=== PATIENT | female | born 1985 | race Caucasian/White ===

== ENCOUNTER → 2016-05-16 | Outpatient (CLI) | payer OTHER ==
[~2016-05-16] MED LIST: 'XANAX1 MG PO; ALBUTEROL0.09 MG/A2 IH; AMBIEN10 M1 PO; AMBIEN10 MG PO; BACTRIM DS 8001 TA1 PO; BRETHINE2.5 M1 PO; CATAFLAM50 MG PO; CIPROFLOXACIN500 MG PO; CLARITIN10 MG PO; CLINDAMYCIN HC300 MG PO; CORDROL20 MG PO; DARVOCET N 1001 TAB PO; DAYPRO600 M1 PO; DELSYM30 MG/5 ML PO; DELTASONE10 MG PO; DIFLUCAN150 MG PO; DOXYCYCLINE MON50 MG; DRISDOL50000 IU PO; ERYTHRO333 MG PO; FIORICET 325 MG1 TAB PO; FLAGYL500 MG PO; FLEXERIL10 MG PO; FLEXERIL5 MG PO; FLONASE0.05 MG/AC NS; GABAPENTIN300 MG PO; GABAPENTIN800 MG PO; GOOD SENSE ALLE10 MG PO; HYDROCODONE BIT1 T11 PO; HYDROXYZINE HCL25 MG PO; IBU-6600 MG PO; IBU-8800 MG PO; IBU600 MG PO; IBUPROFEN800 MG PO; LEVOFLOXACIN500 MG PO; LIBRIUM10 MG PO; Lovenox40 MG/0.4 PO; MELOXICAM15 MG; MOTRIN600 MG PO; MOTRIN800 MG PO; MULTI VITAMINS1 TAB PO; Motrin,Rufen800 MG PO; NALTREXONE50 MG PO; NAPROSYN500 MG PO; NAPROXEN SODIU275 MG PO; NEURONTIN800 MG PO; PANTOPRAZOLE SOD DR PO; PAROXETINE HCL40 MG PO; PAXIL20 MG PO; PAXIL40 MG PO; PERCOCET 325 MG1 TA2; PHENERGAN W/DM120 ML PO; PLETAL100 MG PO; PLETAL50 MG PO; PONSTEL250 MG PO; PRENATABS CBF1 TAB PO; PROMETHAZINE HC25 M2 PO; PROMETHAZINE25 MG PO; PROTONIX; PROTONIX TR40 M1 PO; PROTONIX40 MG PO; PYRIDIUM200 MG PO; ROBAXIN750 MG PO; SUBOXONE 8 MG-21 TAB SL; TOPAMAX25 MG PO; TOPIRAMATE50 MG PO; TORADOL10 MG PO; TRAMADOL HCL50 MG PO; TRAMADOL HYDROC50 MG PO; TRAZADONE HYDR100 MG PO; TRAZODONE HYDR150 MG PO; TYLENOL W/CODEI1 TA2 PO; TYLENOL W/CODEI1 TA5 PO; ULTRAM 50 MG ED2 TAB PO; ULTRAM100 MG PO; VIBRAMYCIN100 MG PO; VICO75300 PO; VICODIN 5/500 505 MG PO; VICODIN1 TAB PO; VISTARIL25 MG PO; VITAMIN D50000 I2 PO; ZITHROMAX Z PA250 MG PO; ZOFRAN ODT4 MG SL; ZOFRAN4 MG PO; ZOFRAN8 MG PO; Zofran4 MG PO
[2016-05-16 18:19] LABS: BASO # 0.1 10*3/uL (0.0-0.1); BASO % 0.5 % (0.0-1.0); EOS # 0.4 10*3/uL (0.0-0.4); EOS % 4.7 % (1.0-4.0); HEMATOCRIT 46.1 % (37.0-47.0); HEMOGLOBIN 14.6 g/dl (12.0-16.0); LYMPH # 3.6 10*3/uL (1.3-4.4); LYMPH % 38.1 % (27.0-41.0); MEAN CELL VOLUME 90.7 fl (81.0-99.0); MEAN CORPUSCULAR HGB 28.7 pg (27.0-31.0); MEAN CORPUSCULAR HGB CONC 31.7 g/dl (33.0-37.0); MEAN PLATELET VOLUME 10.2 fl (9.6-12.3); MONO # 0.8 10*3/uL (0.1-1.0); MONO % 8.2 % (3.0-9.0); NEUT # 4.6 10*3/uL (2.3-7.9); NEUT % 48.4 % (47.0-73.0); PLATELET COUNT AUTOMATED 255 10*3/uL (130-400); RED BLOOD COUNT 5.08 10*6/uL (4.10-5.10); RED CELL DISTRI WIDTH 13.8 % (0-14.5); WHITE BLOOD COUNT 9.4 10*3/uL (4.8-10.8)
[2016-05-16 18:49] LABS: ALBUMIN 3.9 gm/dl (3.1-4.5); ALKALINE PHOSPHATASE 88 U/L (45-117); BILIRUBIN, TOTAL 0.3 mg/dl (0.2-1.0); BUN 19 mg/dl (7-24); CARBON DIOXIDE 28 mmol/L (21-32); CHLORIDE 106 mmol/L (98-107); EST GLOM FILT AFRICAN AMERICAN > 60 ml/min; GLUCOSE 99 mg/dL (65-99); POTASSIUM 4.5 mmol/L (3.5-5.1); SGOT/AST 49 IU/L (3-35); SGPT/ALT 89 U/L (12-78); SODIUM 142 mmol/L (136-145); TOTAL PROTEIN 8.1 gm/dL (6.4-8.2)
[2016-05-17 06:12] LABS: HIV 1+2 AB + HIV1 P24 AG Non Reactive (Non Reactive)
[2016-05-17 06:12] LABS: HEP B CORE AB TOTAL 006718 Negative (Negative); HEPATITIS B SURFACE AB 006395 Reactive (.)
== END | disposition home or self-care (01) ==
LOC: LAB 17:37
PROVIDERS: Family Medicine
DX: F19.10 Other psychoactive substance abuse, uncomplicated (principal)

== ENCOUNTER 2016-07-26 17:55 | Emergency (ER) | payer OTHER ==
[~2016-07-26] VITALS: Wt 56.7 kg
[2016-07-26 18:05] VITALS: BP 161/79
[2016-07-26] MEDS ORDERED: AMITRIPTYLINE25 MG PO (18:08)
[2016-07-26 18:24] LABS: BILIRUBIN NEGATIVE (NEGATIVE); BLOOD NEGATIVE (NEGATIVE); CLARITY SL CLOUDY (CLEAR); COLOR YELLOW (YELLOW); GLUCOSE NEGATIVE (NEGATIVE); KETONE NEGATIVE (NEGATIVE); LEUKO ESTERASE NEGATIVE (NEGATIVE); NITRITE NEGATIVE (NEGATIVE); PROTEIN NEGATIVE (NEGATIVE); SPECIFIC GRAVITY 1.015 (1.005-1.030); UROBILINOGEN 0.2 E.U./dl (0.2-1.0)
[2016-07-26 18:30] LABS: BACTERIA 2+; EPITHELIAL CELLS TNTC; RBC 0-2 rbc/hpf (0-2); URINE REFLEX COMMENT YES (NO)
[2016-07-26 19:04] LABS: BASO # 0.1 10*3/uL (0.0-0.1); BASO % 0.5 % (0.0-1.0); EOS # 0.3 10*3/uL (0.0-0.4); EOS % 2.1 % (1.0-4.0); HEMATOCRIT 43.5 % (37.0-47.0); HEMOGLOBIN 14.9 g/dl (12.0-16.0); LYMPH # 4.1 10*3/uL (1.3-4.4); LYMPH % 33.4 % (27.0-41.0); MEAN CORPUSCULAR HGB 29.8 pg (27.0-31.0); MEAN CORPUSCULAR HGB CONC 34.3 g/dl (33.0-37.0); MEAN PLATELET VOLUME 10.2 fl (9.6-12.3); MONO # 0.8 10*3/uL (0.1-1.0); MONO % 6.2 % (3.0-9.0); NEUT # 7.1 10*3/uL (2.3-7.9); NEUT % 57.6 % (47.0-73.0); PLATELET COUNT AUTOMATED 261 10*3/uL (130-400); WHITE BLOOD COUNT 12.4 10*3/uL (4.8-10.8)
[2016-07-26 19:20] LABS: ALKALINE PHOSPHATASE 75 U/L (45-117); BILIRUBIN, TOTAL 0.2 mg/dl (0.2-1.0); BUN 10 mg/dl (7-24); CARBON DIOXIDE 20 mmol/L (21-32); CHLORIDE 110 mmol/L (98-107); EST GLOM FILT AFRICAN AMERICAN > 60 ml/min; GLUCOSE 89 mg/dL (65-99); POTASSIUM 3.6 mmol/L (3.5-5.1); SGOT/AST 14 IU/L (3-35); SGPT/ALT 14 U/L (12-78); SODIUM 139 mmol/L (136-145); TOTAL PROTEIN 7.9 gm/dL (6.4-8.2)
== END 2016-07-26 20:28 | disposition home or self-care (01) ==
LOC: ED 17:55
PROVIDERS: Nurse Practitioner Family
DX: R10.11 Right upper quadrant pain (principal); R03.0 Elevated blood-pressure reading, without diagnosis of hypertension; F17.200 Nicotine dependence, unspecified, uncomplicated; Z88.0 Allergy status to penicillin

== ENCOUNTER 2016-09-18 19:59 | Emergency (ER) | payer OTHER ==
[~2016-09-18] VITALS: Ht 162.5 cm; Wt 56.7 kg
[~2016-09-18 19:59] MED LIST changes: +AMITRIPTYLINE25 MG PO
[2016-09-18 20:07] VITALS: BP 101/53
[2016-09-18] MEDS ORDERED: Motrin,Rufen800 MG PO (20:48)
== END 2016-09-18 20:55 | disposition home or self-care (01) ==
LOC: ED 19:59
DX: S80.11XA Contusion of right lower leg, initial encounter (principal); F17.200 Nicotine dependence, unspecified, uncomplicated; Z88.0 Allergy status to penicillin; W22.01XA Walked into wall, initial encounter; Y93.I9 Activity, other involving external motion; Y92.89 Other specified places as the place of occurrence of the external cause; Y99.8 Other external cause status

== ENCOUNTER 2016-10-14 14:51 | Emergency (ER) | payer OTHER ==
[~2016-10-14] VITALS: Wt 59.0 kg
[2016-10-14 14:54] VITALS: BP 132/68
== END 2016-10-14 16:33 | disposition home or self-care (01) ==
LOC: ED 14:51
DX: S60.221A Contusion of right hand, initial encounter (principal); F17.200 Nicotine dependence, unspecified, uncomplicated; Z88.0 Allergy status to penicillin; W22.8XXA Striking against or struck by other objects, initial encounter; Y93.89 Activity, other specified; Y92.89 Other specified places as the place of occurrence of the external cause; Y99.8 Other external cause status

== ENCOUNTER 2016-11-25 19:13 | Inpatient (IN) | payer OTHER ==
[~2016-11-25] VITALS: Ht 162.6 cm; Wt 49.6 kg
[2016-11-25 19:16] VITALS: BP 96/66
[2016-11-25 19:18] VITALS: BP 104/62
--- NOTE | 2016-11-25 20:09 | NUR ---
STRAIGHT CATH PREFORMED. PT STIRRED BRIEFLY HOWEVER FELL IMMEDIATLEY BACK TO SLEEP.
[2016-11-25 20:13] LABS: BASO # 0.1 10*3/uL (0.0-0.1); BASO % 0.4 % (0.0-1.0); EOS # 0.2 10*3/uL (0.0-0.4); EOS % 1.3 % (1.0-4.0); HEMATOCRIT 40.6 % (37.0-47.0); HEMOGLOBIN 13.2 g/dl (12.0-16.0); LYMPH # 2.2 10*3/uL (1.3-4.4); LYMPH % 15.3 % (27.0-41.0); MEAN CORPUSCULAR HGB 30.6 pg (27.0-31.0); MEAN CORPUSCULAR HGB CONC 32.5 g/dl (33.0-37.0); MONO # 1.2 10*3/uL (0.1-1.0); MONO % 8.1 % (3.0-9.0); NEUT # 10.6 10*3/uL (2.3-7.9); NEUT % 74.5 % (47.0-73.0); PLATELET COUNT AUTOMATED 225 10*3/uL (130-400); RED BLOOD COUNT 4.32 10*6/uL (4.10-5.10); WHITE BLOOD COUNT 14.3 10*3/uL (4.8-10.8)
[2016-11-25 20:14] LABS: BILIRUBIN 1+ (NEGATIVE); BLOOD 1+ (NEGATIVE); COLOR YELLOW (YELLOW); GLUCOSE NEGATIVE (NEGATIVE); KETONE NEGATIVE (NEGATIVE); LEUKO ESTERASE NEGATIVE (NEGATIVE); NITRITE NEGATIVE (NEGATIVE); PH 5.5 (5.0-9.0); SPECIFIC GRAVITY 1.025 (1.005-1.030); UROBILINOGEN 0.2 E.U./dl (0.2-1.0)
[2016-11-25 20:15] VITALS: BP 98/58
[2016-11-25 20:25] LABS: CLARITY SL CLOUDY (CLEAR)
[2016-11-25 20:27] LABS: ALBUMIN 3.8 gm/dl (3.1-4.5); ALKALINE PHOSPHATASE 87 U/L (45-117); BUN 8 mg/dl (7-24); CHLORIDE 107 mmol/L (98-107); CREATININE 0.79 mg/dL (0.55-1.02); POTASSIUM 3.9 mmol/L (3.5-5.1); SGOT/AST 89 IU/L (3-35); SGPT/ALT 140 U/L (12-78); SODIUM 140 mmol/L (136-145); TOTAL PROTEIN 7.7 gm/dL (6.4-8.2)
[2016-11-25 20:28] LABS: BACTERIA TRACE; EPITHELIAL CELLS 40-45; MUCOUS 1+; WBC 0-2 wbc/hpf (0-5)
[2016-11-25 20:29] LABS: URINE AMPHETAMINES < 1000 (1000ng/ml); URINE BARBITURATES < 200 (200ng/ml); URINE BENZODIAZEPINES > 200 (200ng/ml); URINE CANNABINOIDS (THC) > 50 (50ng/ml); URINE COCAINE > 300 (300ng/ml); URINE METHADONE < 300 (300ng/ml); URINE OPIATES < 300 (300ng/ml)
[2016-11-25 20:29] LABS: ACETAMINOPHEN (TYLENOL) < 2.0 ug/ml (10-30)
[2016-11-25 20:30] LABS: URINE PHENCYCLIDINE < 25 (25ng/ml)
[2016-11-25 20:33] LABS: ETHYL ALCOHOL < 3.0 mg/dl (<3)
[2016-11-25 21:00] VITALS: BP 99/37
--- NOTE | 2016-11-25 21:00 | NUR ---
A 31, admitted to [facility]U, under the services of DEEPAK Zhang DO with a diagnosis of TOXIC METABOLIC ENCEPHALOPATHY, HISTORY OF SUBSTANCE USE DISORDER. Chief complaint is OVERDOSE, MINIMALLY RESPONSIVE. Patient arrived via stretcher from ER. Monitor applied. Initial assessment completed. Vital signs taken and recorded. DEEPAK ZHANG DO notified of admission to the unit. Orders received. See assessment for past medical history, medications and allergies. Patient and/or family oriented to unit. [facility]U visitation policy reviewed. Clothing/patient valuable form completed. CARLOS SCHWARTZ A
[2016-11-25] MEDS ORDERED: PROTONIX40 MG PO (21:26)
--- NOTE | 2016-11-25 22:34 | NUR ---
MESSAGE LEFT ON DR. GARCIA CELL REGARDING CONSULT. AWAITING RETURN CALL. CARLOS SCHWARTZ RN
--- NOTE | 2016-11-25 22:37 | NUR ---
HUSAM PRECIADO NOTIFIED OF ADMISSION. CARLOS SCHWARTZ RN
[2016-11-26] VITALS: BP 98/49
[2016-11-26 03:52] LABS: BASO % 0.4 % (0.0-1.0); EOS # 0.4 10*3/uL (0.0-0.4); EOS % 3.7 % (1.0-4.0); HEMATOCRIT 39.1 % (37.0-47.0); HEMOGLOBIN 12.7 g/dl (12.0-16.0); LYMPH # 3.3 10*3/uL (1.3-4.4); LYMPH % 34.7 % (27.0-41.0); MEAN CELL VOLUME 94.9 fl (81.0-99.0); MEAN CORPUSCULAR HGB 30.8 pg (27.0-31.0); MEAN CORPUSCULAR HGB CONC 32.5 g/dl (33.0-37.0); MEAN PLATELET VOLUME 10.2 fl (9.6-12.3); MONO % 10.9 % (3.0-9.0); NEUT # 4.7 10*3/uL (2.3-7.9); NEUT % 50.1 % (47.0-73.0); PLATELET COUNT AUTOMATED 205 10*3/uL (130-400); RED BLOOD COUNT 4.12 10*6/uL (4.10-5.10); RED CELL DISTRI WIDTH 13.1 % (0-14.5); WHITE BLOOD COUNT 9.4 10*3/uL (4.8-10.8)
[2016-11-26 04:00] VITALS: BP 95/56
[2016-11-26 04:07] LABS: ACT PARTIAL THROMBO TIME 26.5 SECONDS (20.8-31.5); BUN 8 mg/dl (7-24); CHLORIDE 106 mmol/L (98-107); CREATININE 0.67 mg/dL (0.55-1.02); POTASSIUM 3.8 mmol/L (3.5-5.1); SODIUM 140 mmol/L (136-145)
[2016-11-26 04:11] LABS: CHOLESTEROL 154 mg/dL (<200); HDL CHOLESTEROL 53 mg/dl (40-60); LDL CHOLESTEROL 75 mg/dL (9-159); TRIGLYCERIDES 130 mg/dl (<150); VLDL CHOLESTEROL 26 mg/dL (6-40)
[2016-11-26 04:17] LABS: THYROID STIM HORMONE (HS) 0.801 uIU/ml (0.358-4.75)
--- NOTE | 2016-11-26 05:45 | NUR ---
PT. STATED SHE WAS SIGNING HERSELF OUT. DR. COLLINS CALLED TO INFORM OF STATUS. DOWN TO SEE PT AND TALK TO HER REGARDING SUICIDE IDEATION - PT. STATES SHE WAS NOT TRYING TO KILL HERSELF. INFORMED HER OF THE CONSEQUENCES OF SIGNING OUT. PT. MORE AWAKE AND ORIENTED AT THIS TIME. CARLOS SCHWARTZ RN
--- NOTE | 2016-11-26 06:27 | NUR ---
PT. LEFT AGAINST MEDICAL ADVICE. IV HEPLOCK REMOVED. PTS MOTHER TO PICK HER UP IN ER. ALL BELONGINGS WITH PT.
[2016-11-26 08:39] LABS: VITAMIN D, 25-HYDROXY 36.2 ng/mL (30-100)
== END 2016-11-26 06:27 | disposition left against medical advice (07) | DRG 917 ==
LOC: ED 19:13 → EDHOLD 20:16 → ICCU 20:26
PROVIDERS: Emergency Medicine Emergency Medical Services; Internal Medicine; ADMIT Emergency Medicine
DX: T42.4X1A Poisoning by benzodiazepines, accidental (unintentional), initial encounter (principal); G92 Toxic encephalopathy; F33.9 Major depressive disorder, recurrent, unspecified; E83.51 Hypocalcemia; F41.9 Anxiety disorder, unspecified; G43.909 Migraine, unspecified, not intractable, without status migrainosus; T40.5X1A Poisoning by cocaine, accidental (unintentional), initial encounter; T40.7X1A Poisoning by cannabis (derivatives), accidental (unintentional), initial encounter; D72.829 Elevated white blood cell count, unspecified; R74.0 Nonspecific elevation of levels of transaminase and lactic acid dehydrogenase [LDH]; Z72.0 Tobacco use; Y92.89 Other specified places as the place of occurrence of the external cause; Z80.9 Family history of malignant neoplasm, unspecified; Z82.49 Family history of ischemic heart disease and other diseases of the circulatory system; Z79.899 Other long term (current) drug therapy; Z88.0 Allergy status to penicillin; Z87.01 Personal history of pneumonia (recurrent); Z90.49 Acquired absence of other specified parts of digestive tract; Z83.3 Family history of diabetes mellitus; Z53.21 Procedure and treatment not carried out due to patient leaving prior to being seen by health care provider

== ENCOUNTER 2017-03-31 10:26 | Emergency (ER) | payer SELFPAY ==
[~2017-03-31] VITALS: Ht 162.5 cm; Wt 54.4 kg
[2017-03-31 10:37] VITALS: BP 117/69
== END 2017-03-31 12:56 | disposition home or self-care (01) ==
LOC: ED 10:26
DX: R51 Headache (principal); R11.0 Nausea; G43.909 Migraine, unspecified, not intractable, without status migrainosus; F17.200 Nicotine dependence, unspecified, uncomplicated; Z88.0 Allergy status to penicillin; Z88.6 Allergy status to analgesic agent; Z79.899 Other long term (current) drug therapy

== ENCOUNTER 2017-04-03 10:47 | Emergency (ER) | payer SELFPAY ==
[~2017-04-03] VITALS: Ht 162.5 cm; Wt 54.4 kg
[2017-04-03 11:22] VITALS: BP 123/71
[2017-04-03] MEDS ORDERED: NAPROSYN500 MG PO (11:42)
== END 2017-04-03 13:15 | disposition home or self-care (01) ==
LOC: ED 10:47
DX: S80.01XA Contusion of right knee, initial encounter (principal); F17.200 Nicotine dependence, unspecified, uncomplicated; G43.909 Migraine, unspecified, not intractable, without status migrainosus; F14.10 Cocaine abuse, uncomplicated; Z98.890 Other specified postprocedural states; Z90.49 Acquired absence of other specified parts of digestive tract; Z98.51 Tubal ligation status; Z88.6 Allergy status to analgesic agent; Z88.0 Allergy status to penicillin; W22.8XXA Striking against or struck by other objects, initial encounter; Y93.89 Activity, other specified; Y92.89 Other specified places as the place of occurrence of the external cause; Y99.9 Unspecified external cause status

== ENCOUNTER 2017-04-11 10:10 | Emergency (ER) | payer SELFPAY ==
[~2017-04-11] VITALS: Ht 162.5 cm; Wt 54.4 kg
[2017-04-11 10:16] VITALS: BP 95/64
== END 2017-04-11 11:10 | disposition home or self-care (01) ==
LOC: ED 10:10
DX: S61.011A Laceration without foreign body of right thumb without damage to nail, initial encounter (principal); F17.200 Nicotine dependence, unspecified, uncomplicated; G43.909 Migraine, unspecified, not intractable, without status migrainosus; M41.9 Scoliosis, unspecified; F14.10 Cocaine abuse, uncomplicated; Z90.49 Acquired absence of other specified parts of digestive tract; Z98.890 Other specified postprocedural states; Z98.51 Tubal ligation status; Z88.6 Allergy status to analgesic agent; Z88.0 Allergy status to penicillin; W45.8XXA Other foreign body or object entering through skin, initial encounter; Y93.89 Activity, other specified; Y92.89 Other specified places as the place of occurrence of the external cause; Y99.9 Unspecified external cause status

== ENCOUNTER 2017-08-25 22:07 | Emergency (ER) | payer SELFPAY ==
[~2017-08-25] VITALS: Ht 162.5 cm; Wt 49.9 kg
[2017-08-25 22:08] VITALS: BP 116/63
[2017-08-25] MEDS ORDERED: EPIPEN 2-P0.3 MG/0.3 IJ (22:18)
[2017-08-26] MEDS ORDERED: MEDROL DOSEPAK4 MG PO (20:25)
== END 2017-08-25 23:09 | disposition left against medical advice (07) ==
LOC: ED 22:07
DX: T63.441A Toxic effect of venom of bees, accidental (unintentional), initial encounter (principal); L25.8 Unspecified contact dermatitis due to other agents; G43.909 Migraine, unspecified, not intractable, without status migrainosus; F17.200 Nicotine dependence, unspecified, uncomplicated; F14.10 Cocaine abuse, uncomplicated; Z88.6 Allergy status to analgesic agent; Z88.0 Allergy status to penicillin; Z90.49 Acquired absence of other specified parts of digestive tract; Z98.890 Other specified postprocedural states; Z98.51 Tubal ligation status; Y92.89 Other specified places as the place of occurrence of the external cause

== ENCOUNTER 2017-08-26 20:04 | Emergency (ER) | payer SELFPAY ==
[~2017-08-26] VITALS: Wt 49.9 kg
[~2017-08-26 20:04] MED LIST changes: +EPIPEN 2-P0.3 MG/0.3 IJ
[2017-08-26 20:09] VITALS: BP 111/54
[2017-08-26] MEDS ORDERED: MEDROL DOSEPAK4 MG PO (20:25)
== END 2017-08-26 20:35 | disposition home or self-care (01) ==
LOC: ED 20:04
DX: T63.441D Toxic effect of venom of bees, accidental (unintentional), subsequent encounter (principal); F17.200 Nicotine dependence, unspecified, uncomplicated; F14.10 Cocaine abuse, uncomplicated; G43.909 Migraine, unspecified, not intractable, without status migrainosus; M41.9 Scoliosis, unspecified; Z98.890 Other specified postprocedural states; Z98.51 Tubal ligation status; Z90.49 Acquired absence of other specified parts of digestive tract; Z88.6 Allergy status to analgesic agent; Z88.0 Allergy status to penicillin; Y92.9 Unspecified place or not applicable

== ENCOUNTER 2017-11-11 17:47 | Emergency (ER) | payer SELFPAY ==
[~2017-11-11] VITALS: Ht 162.5 cm; Wt 52.2 kg
[~2017-11-11 17:47] MED LIST changes: +MEDROL DOSEPAK4 MG PO
[2017-11-11 17:50] VITALS: BP 108/66
== END 2017-11-11 19:40 | disposition left against medical advice (07) ==
LOC: ED 17:47
DX: N63.0 Unspecified lump in unspecified breast (principal); J02.9 Acute pharyngitis, unspecified; R05 Cough; G43.909 Migraine, unspecified, not intractable, without status migrainosus; F17.200 Nicotine dependence, unspecified, uncomplicated; Z88.0 Allergy status to penicillin; Z88.6 Allergy status to analgesic agent; Z90.49 Acquired absence of other specified parts of digestive tract; Z98.890 Other specified postprocedural states

== ENCOUNTER 2017-12-07 15:53 | Emergency (ER) | payer SELFPAY ==
[~2017-12-07] VITALS: Ht 162.5 cm; Wt 49.9 kg
--- NOTE | ~2017-12-07 | EKG ---
[place], [place] ELECTROCARDIOGRAM REPORT NAME: BRADLEY ZAIDI UNIT #: [id number] ROOM: DOCTOR: EPIPHANY DRAFT REPORT BIRTHDATE: [birth year] [facility] Test Date: 2017-12-07 Test Time: 16:31:22 Pat Name: BRADLEY ZAIDI Department: Room: Gender: F Print Finisher: : 1985 Requested By: CHRIS MCKEON Order Number: [id number] Reading MD: Renan Nielsen MD Measurements Intervals [place] Rate: 60 P: 71 [place]: 136 QRS: 70 QRSD: 86 T: 9 QT: 382 QTc: 382 Interpretive Statements Sinus rhythm Electronically Signed On 12-08-2017 11:00:09 PDT by eRnan Nielsen MD CM:EKGRPT:ELECTROCARDIOGRAM REPORT [id number] CHRIS MCKEON MD [facility] DRAFT REPORT CHRIS MCKEON MD
[2017-12-07 15:53] VITALS: BP 126/79
[2017-12-07 16:12] LABS: BASO # 0.1 10*3/uL (0.0-0.1); BASO % 0.8 % (0.0-1.0); EOS # 0.2 10*3/uL (0.0-0.4); EOS % 1.9 % (1.0-4.0); HEMATOCRIT 47.4 % (37.0-47.0); HEMOGLOBIN 15.6 g/dl (12.0-16.0); LYMPH # 2.5 10*3/uL (1.3-4.4); LYMPH % 31.5 % (27.0-41.0); MEAN CELL VOLUME 92.9 fl (81.0-99.0); MEAN CORPUSCULAR HGB 30.6 pg (27.0-31.0); MEAN CORPUSCULAR HGB CONC 32.9 g/dl (33.0-37.0); MEAN PLATELET VOLUME 9.9 fl (9.6-12.3); MONO # 0.7 10*3/uL (0.1-1.0); MONO % 8.6 % (3.0-9.0); NEUT # 4.5 10*3/uL (2.3-7.9); NEUT % 56.9 % (47.0-73.0); PLATELET COUNT AUTOMATED 257 10*3/uL (130-400); RED CELL DISTRI WIDTH 13.2 % (0-14.5); WHITE BLOOD COUNT 7.8 10*3/uL (4.8-10.8)
[2017-12-07 16:27] LABS: ALBUMIN 4.4 gm/dl (3.1-4.5); ALKALINE PHOSPHATASE 72 U/L (45-117); BUN 17 mg/dl (7-24); CHLORIDE 107 mmol/L (98-107); CREATININE 0.82 mg/dL (0.55-1.02); SGOT/AST 15 IU/L (3-35); SGPT/ALT 32 U/L (12-78); SODIUM 140 mmol/L (136-145)
[2017-12-07 16:37] LABS: BILIRUBIN 1+ (NEGATIVE); BLOOD 3+ (NEGATIVE); CLARITY SL CLOUDY (CLEAR); COLOR YELLOW (YELLOW); GLUCOSE NEGATIVE (NEGATIVE); KETONE TRACE (NEGATIVE); LEUKO ESTERASE NEGATIVE (NEGATIVE); NITRITE NEGATIVE (NEGATIVE); PH 5.5 (5.0-9.0); SPECIFIC GRAVITY 1.025 (1.005-1.030); UROBILINOGEN 0.2 E.U./dl (0.2-1.0)
[2017-12-07 16:44] LABS: BACTERIA 3+
[2017-12-07 16:45] LABS: EPITHELIAL CELLS 31-40; MUCOUS 2+
[2017-12-07 16:46] LABS: RBC 21-30 rbc/hpf (0-2)
== END 2017-12-07 16:51 | disposition home or self-care (01) ==
LOC: ED 15:53
PROVIDERS: Emergency Medicine
DX: R42 Dizziness and giddiness (principal); R51 Headache; E11.9 Type 2 diabetes mellitus without complications; F17.210 Nicotine dependence, cigarettes, uncomplicated; Z90.49 Acquired absence of other specified parts of digestive tract; Z88.6 Allergy status to analgesic agent; Z88.0 Allergy status to penicillin

== ENCOUNTER 2018-01-11 16:39 | Emergency (ER) | payer SELFPAY ==
[~2018-01-11] VITALS: Ht 162.5 cm; Wt 5.0 kg
[2018-01-11 16:40] VITALS: BP 120/58
== END 2018-01-11 17:33 | disposition home or self-care (01) ==
LOC: ED 16:39
DX: N76.0 Acute vaginitis (principal); Z88.6 Allergy status to analgesic agent; Z88.0 Allergy status to penicillin; Z90.49 Acquired absence of other specified parts of digestive tract; Z98.51 Tubal ligation status; Z98.890 Other specified postprocedural states

== ENCOUNTER 2018-04-26 18:37 | Emergency (ER) | payer OTHER ==
[~2018-04-26] VITALS: Ht 162.5 cm; Wt 49.9 kg
[2018-04-26 18:39] VITALS: BP 120/60
== END 2018-04-26 19:59 | disposition home or self-care (01) ==
LOC: ED 18:37
DX: N63.12 Unspecified lump in the right breast, upper inner quadrant (principal); N63.11 Unspecified lump in the right breast, upper outer quadrant; F17.200 Nicotine dependence, unspecified, uncomplicated; Z88.6 Allergy status to analgesic agent; Z88.0 Allergy status to penicillin; Z88.8 Allergy status to other drugs, medicaments and biological substances; Z90.49 Acquired absence of other specified parts of digestive tract

== ENCOUNTER → 2018-06-05 | Outpatient (CLI) | payer OTHER | END | disposition home or self-care (01) | LOC: US 05-12 12:30 | DX: N63.12 Unspecified lump in the right breast, upper inner quadrant (principal) ==

== ENCOUNTER 2018-11-20 15:40 | Inpatient (IN) | payer OTHER ==
[~2018-11-20] VITALS: Ht 154.9 cm; Wt 45.9 kg
[2018-11-20 15:41] VITALS: BP 120/81
[2018-11-20 16:58] LABS: BASO # 0.1 10*3/uL (0.0-0.1); BASO % 0.5 % (0.0-1.0); EOS # 0.3 10*3/uL (0.0-0.4); EOS % 2.1 % (1.0-4.0); HEMATOCRIT 41.6 % (37.0-47.0); LYMPH # 2.7 10*3/uL (1.3-4.4); LYMPH % 19.6 % (27.0-41.0); MEAN CELL VOLUME 91.2 fl (81.0-99.0); MEAN CORPUSCULAR HGB 30.7 pg (27.0-31.0); MEAN CORPUSCULAR HGB CONC 33.7 g/dl (33.0-37.0); MEAN PLATELET VOLUME 10.2 fl (9.6-12.3); MONO # 1.1 10*3/uL (0.1-1.0); MONO % 7.7 % (3.0-9.0); NEUT # 9.7 10*3/uL (2.3-7.9); NEUT % 69.8 % (47.0-73.0); PLATELET COUNT AUTOMATED 251 10*3/uL (130-400); RED BLOOD COUNT 4.56 10*6/uL (4.10-5.10); RED CELL DISTRI WIDTH 13.2 % (0-14.5); WHITE BLOOD COUNT 13.9 10*3/uL (4.8-10.8)
[2018-11-20 17:00] VITALS: BP 120/82
[2018-11-20 17:12] LABS: ALKALINE PHOSPHATASE 108 U/L (45-117); BUN 13 mg/dl (7-24); CHLORIDE 104 mmol/L (98-107); CREATININE 0.73 mg/dL (0.55-1.02); POTASSIUM 3.6 mmol/L (3.5-5.1); SGOT/AST 16 IU/L (3-35); SGPT/ALT 22 U/L (12-78); SODIUM 137 mmol/L (136-145); TOTAL PROTEIN 7.7 gm/dL (6.4-8.2)
[2018-11-20 18:10] VITALS: BP 120/80
[2018-11-20 19:22] VITALS: BP 120/70
[2018-11-20] MEDS ORDERED: NEURONTIN300 MG PO ×2 (20:11→21:44)
[2018-11-20] MEDS ORDERED: PAXIL10 MG PO (20:12)
[2018-11-20] MEDS ORDERED: PROTONIX40 MG PO (20:12)
[2018-11-20] MEDS ORDERED: FIORICET 50-301 EACH PO (20:14)
[2018-11-20 20:24] VITALS: BP 118/74
--- NOTE | 2018-11-20 20:35 | NUR ---
A 33, admitted to , under the services of DEEPAK Zhang DO with a diagnosis of ABCESS, SEPSIS. Chief complaint is ABCESS. Patient arrived via bed from ER. Monitor applied. Initial assessment completed. Vital signs taken and recorded. DEEPKA ZHANG DO notified of admission to the unit. Orders received. See assessment for past medical history, medications and allergies. Patient and/or family oriented to unit. [address] visitation policy reviewed. Clothing/patient valuable form completed. FADI OSMAN
--- NOTE | 2018-11-20 20:45 | NUR ---
PHYSICIAN AWARE OF ABCESS ON PT'S CHIN. DR. EVANS NOTIFIED IN ER.
[2018-11-20] MEDS ORDERED: ESGIC 50-325-41 EACH PO (21:45)
--- NOTE | 2018-11-20 22:46 | NUR ---
DR ROMANO NOTIFIED THAT PATIENT IS REFUSING MONITOR AT THIS TIME.
[2018-11-21] VITALS (7 sets, daily range): BP systolic 117–129; BP diastolic 58–80
[2018-11-21 06:23] LABS: BASO # 0.1 10*3/uL (0.0-0.1); BASO % 0.5 % (0.0-1.0); EOS # 0.5 10*3/uL (0.0-0.4); HEMATOCRIT 39.6 % (37.0-47.0); HEMOGLOBIN 13.4 g/dl (12.0-16.0); LYMPH # 2.2 10*3/uL (1.3-4.4); LYMPH % 16.6 % (27.0-41.0); MEAN CELL VOLUME 90.6 fl (81.0-99.0); MEAN CORPUSCULAR HGB 30.7 pg (27.0-31.0); MEAN CORPUSCULAR HGB CONC 33.8 g/dl (33.0-37.0); MEAN PLATELET VOLUME 10.7 fl (9.6-12.3); MONO # 1.2 10*3/uL (0.1-1.0); MONO % 8.8 % (3.0-9.0); NEUT # 9.2 10*3/uL (2.3-7.9); NEUT % 69.8 % (47.0-73.0); PLATELET COUNT AUTOMATED 240 10*3/uL (130-400); RED BLOOD COUNT 4.37 10*6/uL (4.10-5.10); WHITE BLOOD COUNT 13.1 10*3/uL (4.8-10.8)
[2018-11-21 06:37] LABS: ALBUMIN 3.3 gm/dl (3.1-4.5); BUN 8 mg/dl (7-24); CHLORIDE 109 mmol/L (98-107); POTASSIUM 3.8 mmol/L (3.5-5.1); SGOT/AST 19 IU/L (3-35); SGPT/ALT 20 U/L (12-78); SODIUM 138 mmol/L (136-145)
[2018-11-21 06:46] LABS: ALKALINE PHOSPHATASE 103 U/L (45-117); CHOLESTEROL 130 mg/dL (<200); CREATININE 0.58 mg/dL (0.55-1.02); FREE T4 0.96 ng/dl (0.76-1.46); HDL CHOLESTEROL 67 mg/dl (40-60); LDL CHOLESTEROL 46 mg/dL (9-159); PHOSPHOROUS 3.8 mg/dL (2.5-4.9); TOTAL PROTEIN 6.6 gm/dL (6.4-8.2); TRIGLYCERIDES 85 mg/dl (<150); VLDL CHOLESTEROL 17 mg/dL (6-40)
[2018-11-21 06:56] LABS: ACT PARTIAL THROMBO TIME 29.5 SECONDS (20.0-32.1); INTERNATIONAL NORM RATIO 0.9 (2.0-3.5)
[2018-11-21 07:32] LABS: VITAMIN D, 25-HYDROXY 27.2 ng/mL (30-100)
--- NOTE | 2018-11-21 08:52 | NUR ---
WALKED IN FOR AM ASSESSMENT. PT WALKING IN ROOM, CRYING, IN PAIN TO CHIN AREA. NOTIFIED THAT MORPHINE HELPED BUT PAIN IS BACK. NORCO CURRENTLY ON BUT I FEEL PT NEEDS SOMETHING IV FOR PAIN AT THIS TIME. IN TO ASSESS PT.
--- NOTE | 2018-11-21 09:18 | NUR ---
DIALUDID AND ATIVAN GIVEN PER ORDERS. SEE MAR. CALL LIGHT IN REACH. WILL CONTINUE TO MONITOR.
--- NOTE | 2018-11-21 09:48 | NUR ---
PER , PT FOR I&D TODAY, 11/21 OF CHIN ABSCESS ARND 3PM. ORDERED TO MAKE HER NPO, KEEP CURRENT ORDERS AND CONTACT PRIMARY TEAM FOR IVF. MADE AWARE OF 'S REQUEST. CARLOS, [employer] SKIDDER OPERATOR NOTIFIED OF I&D TODAY.
--- NOTE | 2018-11-21 10:27 | NUR ---
IN BED, RESTING. NO OBVIOUS SIGNS OF DISTRESS OR PAIN NOTED. CALL LIGHT IN REACH. ATIVAN AND DILAUDID WERE EFFECTIVE PER PT. NORCO GIVEN AT THIS TIME TO MAINTAIN PAIN CONTROL. CALL LIGHT IN REACH. EDUCATED ON PAIN MGMT. WILL MONITOR.
--- NOTE | 2018-11-21 10:45 | NUR ---
IN TO SEE PT.
--- NOTE | 2018-11-21 12:56 | NUR ---
MORPHINE GIVEN FOR PAIN RATED 9/10 FOLLOWING NORCO. CALL LIGHT IN REACH. WILL MONITOR FOR EFFECTIVENESS.
--- NOTE | 2018-11-21 13:18 | NUR ---
NOTIFIED THAT PT WAS FOUND TO BE OFF THE FLOOR ON THE 2ND FLOOR. SAID OK. CARLOS, [facility] BAG LOADER NOTIFIED.
--- NOTE | 2018-11-21 13:26 | NUR ---
SLEEPING, NO SXS OF DISTRESS NOTED. FAMILY AT BESIDE. CALL LIGHT IN REACH. IVF GOING WITH [facility].
--- NOTE | 2018-11-21 14:56 | NUR ---
OFF FLOOR FOR I&D AT THIS TIME
--- NOTE | 2018-11-21 15:48 | NUR ---
NURSE TO NURSE REPORT REC'D FROM SURGERY. PT TO COME BACK TO ROOM SOON.
--- NOTE | 2018-11-21 16:00 | NUR ---
BACK TO FLOOR FOLLOWING I&D. VSS. NO VOICED COMPLAINTS. CALL LIGHT IN REACH. FAMILY AT BEDSIDE. WILL CONTINUE TO MONITOR. EDUCATED PT TO ORDER SOFT FOODS FOR FIRST MEAL POST-OP. ACKNOWLEDGED AND AGREED.
--- NOTE | 2018-11-21 17:11 | NUR ---
REQUESTING TO LEAVE FLOOR AGAIN TO GO OUTSIDE AND SMOKE. STATES THE PATCH DOES NOT HELP. INFORMED PT AGAIN THAT THIS IS A NON-SMOKING FACILITY AND SHE IS NOT PERMITTED TO LEAVE THE FLOOR. ASKED IF SHE WOULD LIKE THE NICOTROL INHALER ORDERED. SHE DECLINED THE OFFER. IVF GOING WITH [facility]. DAIGHTER AT BEDSIDE. CALL LIGHT IN REACH. NORCO GIVEN AT THIS TIME FOR CHIN PAIN. WILL MONITOR.
--- NOTE | 2018-11-21 17:23 | NUR ---
SLEEPING, NO SXS OF DISTRESS NOTED. CALL LIGHT IN REACH. DAUGHTER AT BEDSIDE.
--- NOTE | 2018-11-21 21:21 | NUR ---
PATIENT MEDICATED WITH NORCO FOR COMPLAINTS OF CHIN PAIN. WILL CONTINUE TO MONITOR.
[2018-11-22] VITALS: BP 99/54
--- NOTE | 2018-11-22 01:34 | NUR ---
PATIENT MEDICATED WITH MORPHINE FOR COMPLAINTS OF CHIN PAIN. WILL CONTINUE TO MONITOR. CALL LIGHT IN REACH.
--- NOTE | 2018-11-22 05:28 | NUR ---
PATIENT MEDICATED WITH NORCO FOR COMPLAINTS OF CHIN PAIN. WILL CONTINUE TO [facility].
[2018-11-22 06:26] LABS: ALKALINE PHOSPHATASE 117 U/L (45-117); BASO # 0.1 10*3/uL (0.0-0.1); BASO % 0.6 % (0.0-1.0); BUN 5 mg/dl (7-24); CHLORIDE 104 mmol/L (98-107); CREATININE 0.58 mg/dL (0.55-1.02); EOS # 0.4 10*3/uL (0.0-0.4); EOS % 2.8 % (1.0-4.0); HEMATOCRIT 40.7 % (37.0-47.0); HEMOGLOBIN 13.6 g/dl (12.0-16.0); LYMPH # 2.8 10*3/uL (1.3-4.4); LYMPH % 21.8 % (27.0-41.0); MEAN CELL VOLUME 91.7 fl (81.0-99.0); MEAN CORPUSCULAR HGB 30.6 pg (27.0-31.0); MEAN CORPUSCULAR HGB CONC 33.4 g/dl (33.0-37.0); MEAN PLATELET VOLUME 10.9 fl (9.6-12.3); MONO # 1.3 10*3/uL (0.1-1.0); MONO % 10.2 % (3.0-9.0); NEUT # 8.2 10*3/uL (2.3-7.9); NEUT % 64.1 % (47.0-73.0); PLATELET COUNT AUTOMATED 243 10*3/uL (130-400); POTASSIUM 3.9 mmol/L (3.5-5.1); RED BLOOD COUNT 4.44 10*6/uL (4.10-5.10); RED CELL DISTRI WIDTH 13.2 % (0-14.5); SGOT/AST 13 IU/L (3-35); SGPT/ALT 20 U/L (12-78); SODIUM 138 mmol/L (136-145); TOTAL PROTEIN 6.6 gm/dL (6.4-8.2); VANCOMYCIN TROUGH 4.7 ug/mL (10-20); WHITE BLOOD COUNT 12.8 10*3/uL (4.8-10.8)
--- NOTE | 2018-11-22 09:05 | NUR ---
PT MEDICATED WITH MORPHINE PER REQUEST FOR C/O CHIN PAINB. CALL LIGHT IN REACH. WILL MONITOR
--- NOTE | 2018-11-22 10:10 | NUR ---
MEDICATION EFFECTIVE PER PT.
[2018-11-22] MEDS ORDERED: DOXYCYCLINE100 M3 PO (11:31)
[2018-11-22] MEDS ORDERED: PERCOCET 5-3251 EACH PO (11:31)
--- NOTE | 2018-11-22 12:00 | NUR ---
DRSG TEACHING COMPLETED BY THIS NURSE. PT ABLE TO DO DRSG HERSELF AND STATES UNDERSTANDING.
--- NOTE | 2018-11-22 12:25 | NUR ---
MEDS FROM HOME GIVEN TO PATIENT. SLIP SIGNED.
--- NOTE | 2018-11-22 12:40 | NUR ---
Discharge instructions reviewed with patient/family. Patient receptive and verbalizes understanding. Follow-up care arranged. Written instructions given to patient/family. MARCELA HERRMANN
== END 2018-11-22 12:40 | disposition home or self-care (01) | DRG 710 ==
LOC: ED 15:40 → EDHOLD 19:51 → 5E 20:05
PROVIDERS: Internal Medicine; Physician Assistant; ADMIT Emergency Medicine
PROC: 0W920ZZ Drainage of Face, Open Approach (ICD-10-PCS; principal; 2018-11-21)
DX: A41.9 Sepsis, unspecified organism (principal); R65.20 Severe sepsis without septic shock; F32.9 Major depressive disorder, single episode, unspecified; F41.9 Anxiety disorder, unspecified; G43.909 Migraine, unspecified, not intractable, without status migrainosus; M41.9 Scoliosis, unspecified; F12.10 Cannabis abuse, uncomplicated; F17.219 Nicotine dependence, cigarettes, with unspecified nicotine-induced disorders; L02.01 Cutaneous abscess of face; Z71.6 Tobacco abuse counseling; Z86.14 Personal history of Methicillin resistant Staphylococcus aureus infection; Z90.49 Acquired absence of other specified parts of digestive tract; Z98.891 History of uterine scar from previous surgery; Z82.49 Family history of ischemic heart disease and other diseases of the circulatory system; Z83.3 Family history of diabetes mellitus; Z88.0 Allergy status to penicillin; Z88.8 Allergy status to other drugs, medicaments and biological substances; Z88.6 Allergy status to analgesic agent; Z79.899 Other long term (current) drug therapy; T63.4 Toxic effect of venom of other arthropods; Z87.01 Personal history of pneumonia (recurrent); Z98.51 Tubal ligation status; Z80.8 Family history of malignant neoplasm of other organs or systems

== ENCOUNTER 2019-01-03 13:56 | Emergency (ER) | payer OTHER ==
[~2019-01-03] VITALS: Ht 162.5 cm; Wt 49.9 kg
[~2019-01-03 13:56] MED LIST changes: +DOXYCYCLINE100 M3 PO; +ESGIC 50-325-41 EACH PO; +FIORICET 50-301 EACH PO; +NEURONTIN300 MG PO; +PAXIL10 MG PO; +PERCOCET 5-3251 EACH PO
[2019-01-03 13:57] VITALS: BP 122/73
[2019-01-03] MEDS ORDERED: DOXYCYCLINE100 M3 PO (15:12)
[2019-01-03] MEDS ORDERED: PREDNISONE20 M1 PO (15:12)
[2019-01-03] MEDS ORDERED: PROVENTIL HFA6.7 GM INH (15:12)
[2019-01-03] MEDS ORDERED: ROBITUSSIN DM 101 OZ PO (15:12)
== END 2019-01-03 15:15 | disposition home or self-care (01) ==
LOC: ED 13:56
DX: J20.9 Acute bronchitis, unspecified (principal); J45.909 Unspecified asthma, uncomplicated; G43.909 Migraine, unspecified, not intractable, without status migrainosus; F17.210 Nicotine dependence, cigarettes, uncomplicated; Z79.899 Other long term (current) drug therapy; Z88.0 Allergy status to penicillin; Z88.6 Allergy status to analgesic agent; Z88.8 Allergy status to other drugs, medicaments and biological substances

== ENCOUNTER 2019-01-29 20:28 | Emergency (ER) | payer OTHER ==
[~2019-01-29] VITALS: Ht 289.5 cm; Wt 47.6 kg
[2019-01-29 20:28] VITALS: BP 88/64
[~2019-01-29 20:28] MED LIST changes: +PREDNISONE20 M1 PO; +PROVENTIL HFA6.7 GM INH; +ROBITUSSIN DM 101 OZ PO
[2019-01-29 21:18] LABS: BASO # 0.1 10*3/uL (0.0-0.1); BASO % 0.7 % (0.0-1.0); EOS # 0.5 10*3/uL (0.0-0.4); EOS % 3.6 % (1.0-4.0); HEMATOCRIT 41.7 % (37.0-47.0); HEMOGLOBIN 13.7 g/dl (12.0-16.0); LYMPH # 3.4 10*3/uL (1.3-4.4); LYMPH % 26.2 % (27.0-41.0); MEAN CELL VOLUME 90.5 fl (81.0-99.0); MEAN CORPUSCULAR HGB 29.7 pg (27.0-31.0); MEAN CORPUSCULAR HGB CONC 32.9 g/dl (33.0-37.0); MEAN PLATELET VOLUME 9.7 fl (9.6-12.3); MONO % 7.3 % (3.0-9.0); PLATELET COUNT AUTOMATED 310 10*3/uL (130-400); RED BLOOD COUNT 4.61 10*6/uL (4.10-5.10); RED CELL DISTRI WIDTH 13.7 % (0-14.5)
[2019-01-29 21:35] LABS: ALBUMIN 3.9 gm/dl (3.1-4.5); ALKALINE PHOSPHATASE 91 U/L (45-117); BUN 15 mg/dl (7-24); CHLORIDE 112 mmol/L (98-107); CREATININE 0.93 mg/dL (0.55-1.02); POTASSIUM 3.7 mmol/L (3.5-5.1); SGOT/AST 23 IU/L (3-35); SGPT/ALT 39 U/L (12-78); SODIUM 140 mmol/L (136-145); TOTAL PROTEIN 7.3 gm/dL (6.4-8.2); TROPONIN I < 0.015 ng/ml (<0.045)
[2019-01-29 21:40] LABS: ACT PARTIAL THROMBO TIME 26.8 SECONDS (20.0-32.1); INTERNATIONAL NORM RATIO 0.9 (2.0-3.5)
[2019-01-30] MEDS ORDERED: Percocet 325 MG1 TAB PO (01:00)
== END 2019-01-30 02:09 | disposition home or self-care (01) ==
LOC: ED 20:28
PROVIDERS: Emergency Medicine Emergency Medical Services
DX: M94.0 Chondrocostal junction syndrome [Tietze] (principal); R05 Cough; J45.909 Unspecified asthma, uncomplicated; G43.909 Migraine, unspecified, not intractable, without status migrainosus; F17.210 Nicotine dependence, cigarettes, uncomplicated; Z88.6 Allergy status to analgesic agent; Z88.0 Allergy status to penicillin; Z88.8 Allergy status to other drugs, medicaments and biological substances; Z79.899 Other long term (current) drug therapy

== ENCOUNTER 2019-02-01 15:37 | Emergency (ER) | payer OTHER ==
[~2019-02-01] VITALS: Ht 162.5 cm; Wt 49.9 kg
[~2019-02-01 15:37] MED LIST changes: +Percocet 325 MG1 TAB PO
[2019-02-01 15:40] VITALS: BP 141/80
== END 2019-02-01 17:54 | disposition home or self-care (01) ==
LOC: ED 15:37
DX: S29.011A Strain of muscle and tendon of front wall of thorax, initial encounter (principal); R05 Cough; J45.909 Unspecified asthma, uncomplicated; G43.909 Migraine, unspecified, not intractable, without status migrainosus; Z87.891 Personal history of nicotine dependence; Z88.8 Allergy status to other drugs, medicaments and biological substances; Z88.0 Allergy status to penicillin; Z79.2 Long term (current) use of antibiotics; Z79.899 Other long term (current) drug therapy; X50.1XXA Overexertion from prolonged static or awkward postures, initial encounter; Y93.89 Activity, other specified; Y92.89 Other specified places as the place of occurrence of the external cause; Y99.8 Other external cause status

== ENCOUNTER 2019-04-14 21:19 | Emergency (ER) | payer OTHER ==
[~2019-04-14] VITALS: Ht 160 cm; Wt 52.6 kg
[2019-04-14 21:29] VITALS: BP 126/62
== END 2019-04-14 23:51 | disposition home or self-care (01) ==
LOC: ED 21:19
DX: G44.40 Drug-induced headache, not elsewhere classified, not intractable (principal); G25.81 Restless legs syndrome; T45.0X5A Adverse effect of antiallergic and antiemetic drugs, initial encounter; G43.909 Migraine, unspecified, not intractable, without status migrainosus; F17.210 Nicotine dependence, cigarettes, uncomplicated; Z79.899 Other long term (current) drug therapy; Z88.0 Allergy status to penicillin; Z88.6 Allergy status to analgesic agent; Z88.8 Allergy status to other drugs, medicaments and biological substances; Y92.89 Other specified places as the place of occurrence of the external cause

== ENCOUNTER 2019-05-16 01:05 | Emergency (ER) | payer OTHER ==
[~2019-05-16] VITALS: Ht 162.5 cm; Wt 52.2 kg
[2019-05-16 01:11] VITALS: BP 136/85
[2019-05-16] MEDS ORDERED: NORCO 5-325 TA1 EACH PO (03:03)
== END 2019-05-16 03:00 | disposition home or self-care (01) ==
LOC: ED 01:05
DX: S22.31XA Fracture of one rib, right side, initial encounter for closed fracture (principal); S22.32XA Fracture of one rib, left side, initial encounter for closed fracture; F41.9 Anxiety disorder, unspecified; J45.909 Unspecified asthma, uncomplicated; G43.909 Migraine, unspecified, not intractable, without status migrainosus; F17.200 Nicotine dependence, unspecified, uncomplicated; Z88.8 Allergy status to other drugs, medicaments and biological substances; Z88.0 Allergy status to penicillin; Z79.899 Other long term (current) drug therapy; X58.XXXA Exposure to other specified factors, initial encounter; Y93.89 Activity, other specified; Y92.89 Other specified places as the place of occurrence of the external cause; Y99.8 Other external cause status

== ENCOUNTER → 2019-06-02 | Outpatient (CLI) | payer OTHER ==
[~2019-06-02] MED LIST changes: +NORCO 5-325 TA1 EACH PO
== END | disposition home or self-care (01) ==
LOC: RAD 16:44
DX: S22.42XA Multiple fractures of ribs, left side, initial encounter for closed fracture (principal); X58.XXXA Exposure to other specified factors, initial encounter; Y93.89 Activity, other specified; Y92.89 Other specified places as the place of occurrence of the external cause; Y99.8 Other external cause status

== ENCOUNTER → 2019-09-02 | Outpatient (CLI) | payer OTHER | END | disposition home or self-care (01) | LOC: COVID19 03:40 | DX: R06.02 Shortness of breath (principal); Z20.828 Contact with and (suspected) exposure to other viral communicable diseases ==

== ENCOUNTER → 2019-11-22 | Outpatient (CLI) | payer OTHER | END | disposition home or self-care (01) | LOC: COVID19 02:45 | PROVIDERS: ATTEND Internal Medicine Nephrology | DX: Z20.828 Contact with and (suspected) exposure to other viral communicable diseases (principal) ==

== ENCOUNTER → 2020-01-15 | Outpatient (CLI) | payer OTHER | END | disposition home or self-care (01) | LOC: COVID19 12:12 | PROVIDERS: ATTEND Internal Medicine Nephrology | DX: Z20.828 Contact with and (suspected) exposure to other viral communicable diseases (principal) ==

== ENCOUNTER → 2020-03-24 | Outpatient (CLI) | payer OTHER ==
[~2020-03-24] MED LIST changes: +HYDROCODONE-AC1 EAC1 PO
== END | disposition home or self-care (01) ==
LOC: RAD 13:58
PROVIDERS: ATTEND Internal Medicine Nephrology
DX: R07.1 Chest pain on breathing (principal)

== ENCOUNTER 2020-03-25 16:52 | Emergency (ER) | payer OTHER ==
[~2020-03-25] VITALS: Ht 162.5 cm; Wt 59.0 kg
[~2020-03-25 16:52] MED LIST changes: -HYDROCODONE-AC1 EAC1 PO
[2020-03-25 17:09] VITALS: BP 130/57
== END 2020-03-25 17:45 | disposition home or self-care (01) ==
LOC: ED 16:52
DX: R07.81 Pleurodynia (principal); M79.18 Myalgia, other site; F41.9 Anxiety disorder, unspecified; J45.909 Unspecified asthma, uncomplicated; G43.909 Migraine, unspecified, not intractable, without status migrainosus; F17.210 Nicotine dependence, cigarettes, uncomplicated; Z88.8 Allergy status to other drugs, medicaments and biological substances; Z88.0 Allergy status to penicillin; Z79.899 Other long term (current) drug therapy; Z79.2 Long term (current) use of antibiotics; Z98.890 Other specified postprocedural states; Z90.49 Acquired absence of other specified parts of digestive tract; Z86.14 Personal history of Methicillin resistant Staphylococcus aureus infection; Y04.2XXA Assault by strike against or bumped into by another person, initial encounter; Y93.89 Activity, other specified; Y92.89 Other specified places as the place of occurrence of the external cause; Y99.8 Other external cause status

== ENCOUNTER → 2020-04-11 | Outpatient (CLI) | payer OTHER ==
[~2020-04-11] MED LIST changes: +HYDROCODONE-AC1 EAC1 PO
== END | disposition home or self-care (01) ==
LOC: RAD 11:37
PROVIDERS: ATTEND Internal Medicine Nephrology
DX: M89.8X8 Other specified disorders of bone, other site (principal); R07.81 Pleurodynia

== ENCOUNTER 2020-04-14 03:10 | Emergency (ER) | payer OTHER ==
[~2020-04-14] VITALS: Ht 162.5 cm; Wt 63.5 kg
[~2020-04-14 03:10] MED LIST changes: -HYDROCODONE-AC1 EAC1 PO
[2020-04-14 03:23] VITALS: BP 112/57
[2020-04-14] MEDS ORDERED: HYDROCODONE-AC1 EAC1 PO (04:10)
== END 2020-04-14 04:41 | disposition home or self-care (01) ==
LOC: ED 03:10
DX: S96.912A Strain of unspecified muscle and tendon at ankle and foot level, left foot, initial encounter (principal); S90.32XA Contusion of left foot, initial encounter; F32.9 Major depressive disorder, single episode, unspecified; Z88.0 Allergy status to penicillin; Z88.8 Allergy status to other drugs, medicaments and biological substances; X50.1XXA Overexertion from prolonged static or awkward postures, initial encounter; Y93.89 Activity, other specified; Y92.89 Other specified places as the place of occurrence of the external cause; Y99.8 Other external cause status

== ENCOUNTER 2020-06-08 19:31 | Emergency (ER) | payer OTHER ==
[~2020-06-08] VITALS: Ht 162.5 cm; Wt 59.0 kg
[~2020-06-08 19:31] MED LIST changes: +HYDROCODONE-AC1 EAC1 PO
[2020-06-08 19:37] VITALS: BP 127/79
[2020-06-08 20:14] LABS: HEMATOCRIT 43.1 % (37.0-47.0); MEAN CELL VOLUME 91.3 fl (81.0-99.0); MEAN CORPUSCULAR HGB 29.7 pg (27.0-31.0); MEAN CORPUSCULAR HGB CONC 32.5 g/dl (33.0-37.0); MEAN PLATELET VOLUME 9.2 fl (9.6-12.3); PLATELET COUNT AUTOMATED 341 10*3/uL (130-400); RED BLOOD COUNT 4.72 10*6/uL (4.10-5.10); RED CELL DISTRI WIDTH 12.2 % (0-14.5); WHITE BLOOD COUNT 15.7 10*3/uL (4.8-10.8)
[2020-06-08 20:30] LABS: ALBUMIN 2.9 gm/dl (3.1-4.5); ALKALINE PHOSPHATASE 114 U/L (45-117); BUN 6 mg/dl (7-24); CHLORIDE 98 mmol/L (98-107); CREATININE 0.79 mg/dL (0.55-1.02); LIPASE 53 U/L (73-393); POTASSIUM 3.7 mmol/L (3.5-5.1); SGOT/AST 10 IU/L (3-35); SGPT/ALT 26 U/L (12-78); SODIUM 132 mmol/L (136-145); TOTAL PROTEIN 7.6 gm/dL (6.4-8.2)
[2020-06-08 20:49] LABS: BILIRUBIN Negative (Negative); BLOOD Negative (Negative); CLARITY Clear (Clear); COLOR Yellow (Yellow); GLUCOSE Negative (Negative); KETONE Negative (Negative); LEUKO ESTERASE 1+ (Negative); NITRITE Negative (Negative); PH 7.5 (4.5-8.0)
[2020-06-08 20:59] LABS: URINE AMPHETAMINES > 1000 (1000ng/ml); URINE BARBITURATES < 200 (200ng/ml); URINE BENZODIAZEPINES < 200 (200ng/ml); URINE CANNABINOIDS (THC) > 50 (50ng/ml); URINE COCAINE < 300 (300ng/ml); URINE METHADONE < 300 (300ng/ml); URINE OPIATES < 300 (300ng/ml)
[2020-06-08 21:01] LABS: URINE PHENCYCLIDINE < 25 (25ng/ml)
[2020-06-08 21:09] LABS: PLATELET SUFFICIENCY NORMAL (NORMAL); TOTAL CELLS COUNTED 100 #CELLS
[2020-06-08 21:10] LABS: OVALOCYTES FEW
[2020-06-08 21:13] LABS: BACTERIA TRACE
== END 2020-06-09 00:45 | disposition home or self-care (01) ==
LOC: ED 19:31
PROVIDERS: Hospitalist
DX: G43.909 Migraine, unspecified, not intractable, without status migrainosus (principal); R10.9 Unspecified abdominal pain; F41.9 Anxiety disorder, unspecified; F32.9 Major depressive disorder, single episode, unspecified; F17.200 Nicotine dependence, unspecified, uncomplicated; Z20.822 Contact with and (suspected) exposure to COVID-19; Z90.49 Acquired absence of other specified parts of digestive tract; Z98.890 Other specified postprocedural states; Z88.8 Allergy status to other drugs, medicaments and biological substances; Z88.0 Allergy status to penicillin; Z79.899 Other long term (current) drug therapy; Z98.51 Tubal ligation status

== ENCOUNTER 2020-09-23 13:02 | Emergency (ER) | payer OTHER ==
[~2020-09-23] VITALS: Wt 54.4 kg
[2020-09-23 13:15] VITALS: BP 126/77
== END 2020-09-23 14:38 | disposition left against medical advice (07) ==
LOC: ED 13:02
DX: R07.81 Pleurodynia (principal); Z53.21 Procedure and treatment not carried out due to patient leaving prior to being seen by health care provider; X50.1XXA Overexertion from prolonged static or awkward postures, initial encounter; Y93.44 Activity, trampolining; Y92.89 Other specified places as the place of occurrence of the external cause; Y99.8 Other external cause status

== ENCOUNTER → 2020-09-25 | Outpatient (CLI) | payer OTHER | END | disposition home or self-care (01) | LOC: RAD 16:40 | PROVIDERS: ATTEND Internal Medicine Nephrology | DX: R07.81 Pleurodynia (principal) ==

== ENCOUNTER 2020-11-19 14:03 | Emergency (ER) | payer OTHER ==
[~2020-11-19] VITALS: Ht 162.5 cm; Wt 59.0 kg
[2020-11-19 14:23] VITALS: BP 118/78
[2020-11-19] MEDS ORDERED: CLEOCIN HCL150 MG PO (15:42)
== END 2020-11-19 15:44 | disposition home or self-care (01) ==
LOC: ED 14:03
DX: S02.5XXA Fracture of tooth (traumatic), initial encounter for closed fracture (principal); Z88.8 Allergy status to other drugs, medicaments and biological substances; Z88.0 Allergy status to penicillin; Z79.899 Other long term (current) drug therapy; Z79.2 Long term (current) use of antibiotics; Z90.49 Acquired absence of other specified parts of digestive tract; Z98.890 Other specified postprocedural states; Z98.51 Tubal ligation status; F17.210 Nicotine dependence, cigarettes, uncomplicated; X58.XXXA Exposure to other specified factors, initial encounter; Y93.89 Activity, other specified; Y92.89 Other specified places as the place of occurrence of the external cause; Y99.8 Other external cause status

== ENCOUNTER 2021-03-10 20:01 | Emergency (ER) | payer OTHER ==
[~2021-03-10] VITALS: Ht 162.5 cm; Wt 63.5 kg
[~2021-03-10 20:01] MED LIST changes: +CLEOCIN HCL150 MG PO
[2021-03-10 20:26] VITALS: BP 128/77
[2021-03-10] MEDS ORDERED: MEDROL DOSEPAK4 MG PO (22:07)
== END 2021-03-10 22:22 | disposition home or self-care (01) ==
LOC: ED 20:01
DX: R07.81 Pleurodynia (principal); Z88.6 Allergy status to analgesic agent; Z88.0 Allergy status to penicillin; Z88.8 Allergy status to other drugs, medicaments and biological substances; Z79.899 Other long term (current) drug therapy; Z90.49 Acquired absence of other specified parts of digestive tract; Z98.890 Other specified postprocedural states; Z98.51 Tubal ligation status; Z87.891 Personal history of nicotine dependence

== ENCOUNTER → 2021-03-12 | Outpatient (CLI) | payer OTHER | END | disposition home or self-care (01) | LOC: RAD 14:25 | PROVIDERS: ATTEND Internal Medicine | DX: R91.1 Solitary pulmonary nodule (principal); F41.9 Anxiety disorder, unspecified ==

== ENCOUNTER 2021-04-23 17:18 | Emergency (ER) | payer OTHER ==
[~2021-04-23] VITALS: Ht 162.5 cm; Wt 56.7 kg
[2021-04-23 17:51] VITALS: BP 128/60
== END 2021-04-23 20:02 | disposition left against medical advice (07) ==
LOC: ED 17:18
DX: Z53.21 Procedure and treatment not carried out due to patient leaving prior to being seen by health care provider (principal)

== ENCOUNTER 2021-06-01 21:10 | Emergency (ER) | payer OTHER ==
[~2021-06-01] VITALS: Ht 165.1 cm
[2021-06-01 21:32] VITALS: BP 133/87
[2021-06-01] MEDS ORDERED: METHOCARBAMOL500 M1 PO (22:06)
[2021-06-01] MEDS ORDERED: IBUPROFEN600 MG PO (22:06)
== END 2021-06-01 22:19 | disposition home or self-care (01) ==
LOC: ED 21:10
DX: S29.012A Strain of muscle and tendon of back wall of thorax, initial encounter (principal); Z88.8 Allergy status to other drugs, medicaments and biological substances; Z88.0 Allergy status to penicillin; Z79.899 Other long term (current) drug therapy; Z90.49 Acquired absence of other specified parts of digestive tract; Z98.890 Other specified postprocedural states; Z98.51 Tubal ligation status; X58.XXXA Exposure to other specified factors, initial encounter; Y93.89 Activity, other specified; Y92.89 Other specified places as the place of occurrence of the external cause; Y99.8 Other external cause status

== ENCOUNTER 2021-06-13 01:58 | Emergency (ER) | payer OTHER ==
[~2021-06-13] VITALS: Ht 162.5 cm; Wt 56.7 kg
[~2021-06-13 01:58] MED LIST changes: +IBUPROFEN600 MG PO; +METHOCARBAMOL500 M1 PO
[2021-06-13 02:08] VITALS: BP 134/82
== END 2021-06-13 03:55 | disposition home or self-care (01) ==
LOC: ED 01:58
DX: S20.212A Contusion of left front wall of thorax, initial encounter (principal); S60.511A Abrasion of right hand, initial encounter; S50.811A Abrasion of right forearm, initial encounter; S80.811A Abrasion, right lower leg, initial encounter; M79.671 Pain in right foot; M25.531 Pain in right wrist; Z88.0 Allergy status to penicillin; Z88.6 Allergy status to analgesic agent; Z88.8 Allergy status to other drugs, medicaments and biological substances; Z79.899 Other long term (current) drug therapy; Z90.49 Acquired absence of other specified parts of digestive tract; Z98.890 Other specified postprocedural states; Z87.891 Personal history of nicotine dependence; Z98.51 Tubal ligation status; V86.99XA Unspecified occupant of other special all-terrain or other off-road motor vehicle injured in nontraffic accident, initial encounter; Y93.89 Activity, other specified; Y92.89 Other specified places as the place of occurrence of the external cause; Y99.8 Other external cause status

== ENCOUNTER 2021-08-22 18:37 | Emergency (ER) | payer OTHER ==
[~2021-08-22] VITALS: Ht 162.5 cm; Wt 59.0 kg
[2021-08-22 19:35] VITALS: BP 135/74
[2021-08-22] MEDS ORDERED: CELEXA20 MG PO (19:36)
== END 2021-08-22 20:26 | disposition left against medical advice (07) ==
LOC: ED 18:37
DX: R07.81 Pleurodynia (principal); Z53.21 Procedure and treatment not carried out due to patient leaving prior to being seen by health care provider

== ENCOUNTER 2021-09-14 17:26 | Emergency (ER) | payer OTHER ==
[~2021-09-14 17:26] MED LIST changes: +CELEXA40 MG PO
[2021-09-14 17:55] VITALS: BP 135/78
[2021-09-14] MEDS ORDERED: EPIPEN 2-P0.3 MG/0.3 IJ (21:05)
[2021-09-14] MEDS ORDERED: PEPCID20 MG PO ×2 (21:05)
[2021-09-14] MEDS ORDERED: MEDROL DOSEPAK4 MG PO (21:05)
[2021-09-17] MEDS ORDERED: WELLBUTRIN SR150 MG PO (18:01)
== END 2021-09-14 21:14 | disposition home or self-care (01) ==
LOC: ED 17:26
DX: T78.2XXA Anaphylactic shock, unspecified, initial encounter (principal); F17.210 Nicotine dependence, cigarettes, uncomplicated; Z88.8 Allergy status to other drugs, medicaments and biological substances; Z88.0 Allergy status to penicillin; Z79.899 Other long term (current) drug therapy; Z90.49 Acquired absence of other specified parts of digestive tract; Z98.890 Other specified postprocedural states; Z98.51 Tubal ligation status

== ENCOUNTER → 2021-09-21 | Outpatient (CLI) | payer OTHER ==
[~2021-09-21] MED LIST changes: +PEPCID20 MG PO; +WELLBUTRIN SR150 MG PO
[2021-09-26 17:06] LABS: ALTERNARIA ALTERNATA, IGE <0.10 kU/L (Class 0); AMERICAN ELM, IGE <0.10 kU/L (Class 0); ASPERGILLUS FUMIGATU, IGE <0.10 kU/L (Class 0); BERMUDA GRASS, IGE <0.10 kU/L (Class 0); BIRCH, COMMON SILVER IGE <0.10 kU/L (Class 0); CLADOSPORIUM HERBARU, IGE <0.10 kU/L (Class 0); D FARINAE MITE <0.10 kU/L (Class 0); D PTERONYSSINUS <0.10 kU/L (Class 0); DOG DANDER, IGE <0.10 kU/L (Class 0); MAPLE LEAF SYCAMORE, IGE <0.10 kU/L (Class 0); MAPLE/BOX ELDER, IGE <0.10 kU/L (Class 0); MOUSE URINE IGE <0.10 kU/L (Class 0); PENICILLIUM CHRYSOGENUM, IGE <0.10 kU/L (Class 0); ROUGH PIGWEED, IGE <0.10 kU/L (Class 0); SHEEP SORREL (DOCK), IGE <0.10 kU/L (Class 0); SHORT RAGWEED, IGE <0.10 kU/L (Class 0); TIMOTHY, IGE <0.10 kU/L (Class 0); WALNUT TREE, IGE <0.10 kU/L (Class 0); WHITE ASH, IGE <0.10 kU/L (Class 0); WHITE MULBERRY, IGE <0.10 kU/L (Class 0); WHITE OAK, IGE <0.10 kU/L (Class 0)
[2021-09-26 17:07] LABS: CODFISH, IGE <0.10 kU/L (Class 0); EGG WHITE, IGE <0.10 kU/L (Class 0); MILK (COW), IGE <0.10 kU/L (Class 0); PEANUT, IGE <0.10 kU/L (Class 0); SOYBEAN, IGE <0.10 kU/L (Class 0); WHEAT, IGE <0.10 kU/L (Class 0)
[2021-09-27 03:06] LABS: BUMBLEBEE IGE <0.10 kU/L (Class 0); HONEYBEE, IGE <0.10 kU/L (Class 0); WHITE FACE HORNET, IGE 1.91 kU/L (Class III); YELLOW HORNET, IGE 2.18 kU/L (Class III)
== END | disposition home or self-care (01) ==
LOC: LAB 16:31
PROVIDERS: ATTEND Specialist
DX: J30.9 Allergic rhinitis, unspecified (principal)

== ENCOUNTER → 2021-09-25 | Outpatient (CLI) | payer OTHER ==
[2021-09-25 14:56] LABS: HEMATOCRIT 45.1 % (37.0-47.0); MEAN CELL VOLUME 81.6 fl (81.0-99.0); MEAN CORPUSCULAR HGB CONC 31.9 g/dl (33.0-37.0); MEAN PLATELET VOLUME 9.6 fl (9.6-12.3); PLATELET COUNT AUTOMATED 392 10*3/uL (130-400); RED BLOOD COUNT 5.53 10*6/uL (4.10-5.10); RED CELL DISTRI WIDTH 16.5 % (0-14.5); WHITE BLOOD COUNT 6.8 10*3/uL (4.8-10.8)
[2021-09-25 15:35] LABS: ALKALINE PHOSPHATASE 146 U/L (45-117); BUN 8 mg/dl (7-24); CHLORIDE 107 mmol/L (98-107); CREATININE 0.76 mg/dL (0.55-1.02); SGOT/AST 49 IU/L (3-35); SGPT/ALT 66 U/L (12-78); SODIUM 140 mmol/L (136-145)
[2021-09-25 15:36] LABS: MANUAL DIFF REFLEX YES
[2021-09-25 15:42] LABS: THYROID STIM HORMONE (HS) 0.631 uIU/ml (0.358-4.75)
[2021-09-25 16:03] LABS: VITAMIN D, 25-HYDROXY 30.1 ng/mL (30-100)
[2021-09-25 16:46] LABS: PLATELET SUFFICIENCY NORMAL (NORMAL); TOTAL CELLS COUNTED 100 #CELLS
[2021-09-25 16:47] LABS: BURR CELLS FEW; OVALOCYTES FEW
[2021-09-26 10:07] LABS: HBSAG Negative (Negative); HEP B CORE AB, IGM Negative (Negative)
[2021-09-28 16:07] LABS: HEPATITIS C ANTIBODY >11.0 (0.0-0.9)
== END | disposition home or self-care (01) ==
LOC: LAB 14:20
PROVIDERS: ATTEND Physician Assistant
DX: Z51.81 Encounter for therapeutic drug level monitoring (principal)

== ENCOUNTER 2022-02-01 12:13 | Emergency (ER) | payer OTHER ==
[~2022-02-01] VITALS: Wt 56.7 kg
[2022-02-01 12:21] VITALS: BP 128/79
[2022-02-01] MEDS ORDERED: DIFLUCAN150 MG PO ×3 (12:29→12:40)
[2022-02-01] MEDS ORDERED: CLINDAMYCIN HC300 MG PO ×3 (12:29→12:39)
== END 2022-02-01 12:38 | disposition home or self-care (01) ==
LOC: ED 12:13
DX: K02.9 Dental caries, unspecified (principal); Z88.0 Allergy status to penicillin; Z88.8 Allergy status to other drugs, medicaments and biological substances; Z79.899 Other long term (current) drug therapy; Z98.51 Tubal ligation status; Z90.49 Acquired absence of other specified parts of digestive tract; Z98.890 Other specified postprocedural states; Z87.891 Personal history of nicotine dependence

== ENCOUNTER → 2022-04-09 | Outpatient (CLI) | payer OTHER | END | disposition home or self-care (01) | LOC: RAD 13:33 | PROVIDERS: ATTEND Family Medicine | DX: R20.2 Paresthesia of skin (principal) ==

== ENCOUNTER → 2022-04-11 | Outpatient (CLI) | payer OTHER ==
[2022-04-11 09:54] LABS: BASO # 0.1 10*3/uL (0.0-0.1); BASO % 0.9 % (0.0-1.0); EOS # 0.4 10*3/uL (0.0-0.4); HEMATOCRIT 43.3 % (37.0-47.0); LYMPH # 1.9 10*3/uL (1.3-4.4); LYMPH % 35.4 % (27.0-41.0); MEAN CELL VOLUME 89.5 fl (81.0-99.0); MEAN CORPUSCULAR HGB 28.1 pg (27.0-31.0); MEAN CORPUSCULAR HGB CONC 31.4 g/dl (33.0-37.0); MEAN PLATELET VOLUME 9.2 fl (9.6-12.3); MONO # 0.5 10*3/uL (0.1-1.0); MONO % 9.7 % (3.0-9.0); NEUT # 2.5 10*3/uL (2.3-7.9); NEUT % 45.8 % (47.0-73.0); PLATELET COUNT AUTOMATED 232 10*3/uL (130-400); RED BLOOD COUNT 4.84 10*6/uL (4.10-5.10); RED CELL DISTRI WIDTH 14.6 % (0-14.5); WHITE BLOOD COUNT 5.4 10*3/uL (4.8-10.8)
[2022-04-11 10:16] LABS: ALKALINE PHOSPHATASE 62 U/L (46-116); BUN 16 mg/dl (9-23); CHLORIDE 107 mmol/L (98-107); POTASSIUM 4.3 mmol/L (3.4-5.1); SGPT/ALT 10 U/L (10-49); THYROID STIM HORMONE (HS) 1.575 uIU/ml (0.550-4.780); TOTAL PROTEIN 6.8 gm/dL (6.0-8.0)
== END | disposition home or self-care (01) ==
LOC: LAB 09:25
PROVIDERS: ATTEND Student in an Organized Health Care Education/Training Program
DX: R07.9 Chest pain, unspecified (principal); R20.2 Paresthesia of skin

== ENCOUNTER 2022-05-30 10:30 | Emergency (ER) | payer OTHER ==
[~2022-05-30] VITALS: Wt 56.7 kg
[2022-05-30 10:39] VITALS: BP 129/76
[2022-05-30] MEDS ORDERED: PREDNISONE10 MG PO (10:42)
== END 2022-05-30 11:41 | disposition home or self-care (01) ==
LOC: ED 10:30
DX: T63.441A Toxic effect of venom of bees, accidental (unintentional), initial encounter (principal); Z88.8 Allergy status to other drugs, medicaments and biological substances; Z88.0 Allergy status to penicillin; Z91.030 Bee allergy status; Z79.899 Other long term (current) drug therapy; Z98.51 Tubal ligation status; Z90.49 Acquired absence of other specified parts of digestive tract; Z98.890 Other specified postprocedural states; F17.210 Nicotine dependence, cigarettes, uncomplicated; Y92.89 Other specified places as the place of occurrence of the external cause

== ENCOUNTER → 2022-07-17 | Outpatient (CLI) | payer OTHER ==
[~2022-07-17] MED LIST changes: +PREDNISONE10 MG PO
== END | disposition home or self-care (01) ==
LOC: CARD 06-14 01:00
PROVIDERS: ATTEND Internal Medicine
DX: R07.9 Chest pain, unspecified (principal)

== ENCOUNTER 2022-08-12 20:47 | Emergency (ER) | payer OTHER ==
[~2022-08-12] VITALS: Ht 170.1 cm; Wt 61.2 kg
[2022-08-12 20:55] VITALS: BP 119/40
== END 2022-08-12 21:52 | disposition home or self-care (01) ==
LOC: ED 20:47
DX: S05.02XA Injury of conjunctiva and corneal abrasion without foreign body, left eye, initial encounter (principal); G43.909 Migraine, unspecified, not intractable, without status migrainosus; F41.9 Anxiety disorder, unspecified; J45.909 Unspecified asthma, uncomplicated; Z91.030 Bee allergy status; Z88.0 Allergy status to penicillin; Z88.6 Allergy status to analgesic agent; Z88.8 Allergy status to other drugs, medicaments and biological substances; Z90.49 Acquired absence of other specified parts of digestive tract; Z98.51 Tubal ligation status; Z98.890 Other specified postprocedural states; F14.90 Cocaine use, unspecified, uncomplicated; F12.10 Cannabis abuse, uncomplicated; F17.210 Nicotine dependence, cigarettes, uncomplicated; X58.XXXA Exposure to other specified factors, initial encounter; Y93.89 Activity, other specified; Y92.009 Unspecified place in unspecified non-institutional (private) residence as the place of occurrence of the external cause; Y99.8 Other external cause status

== ENCOUNTER 2023-09-27 23:13 | Emergency (ER) | payer OTHER ==
[~2023-09-27] VITALS: Ht 162.5 cm; Wt 53.1 kg
[2023-09-27 23:35] VITALS: BP 114/75
[2023-09-28 00:01] LABS: BASO # 0.1 10*3/uL (0.0-0.1); BASO % 0.6 % (0.0-1.0); EOS # 0.4 10*3/uL (0.0-0.4); EOS % 3.7 % (1.0-4.0); HEMATOCRIT 41.6 % (37.0-47.0); LYMPH # 2.9 10*3/uL (1.3-4.4); MEAN CELL VOLUME 87.4 fl (81.0-99.0); MEAN CORPUSCULAR HGB 30.7 pg (27.0-31.0); MEAN CORPUSCULAR HGB CONC 35.1 g/dl (33.0-37.0); MEAN PLATELET VOLUME 8.7 fl (9.6-12.3); MONO # 0.8 10*3/uL (0.1-1.0); MONO % 7.2 % (3.0-9.0); NEUT # 6.6 10*3/uL (2.3-7.9); NEUT % 61.2 % (47.0-73.0); PLATELET COUNT AUTOMATED 276 10*3/uL (130-400); RED BLOOD COUNT 4.76 10*6/uL (4.10-5.10); WHITE BLOOD COUNT 10.8 10*3/uL (4.8-10.8)
[2023-09-28 00:14] LABS: BILIRUBIN Negative (Negative); BLOOD Negative (Negative); CLARITY Clear (Clear); COLOR Yellow (Yellow); GLUCOSE Negative (Negative); KETONE Negative (Negative); LEUKO ESTERASE Negative (Negative); NITRITE Negative (Negative); SPECIFIC GRAVITY >= 1.030 (1.001-1.030)
[2023-09-28 00:20] LABS: BUN 11 mg/dl (9-23); CHLORIDE 108 mmol/L (98-107); POTASSIUM 3.7 mmol/L (3.4-5.1)
[2023-09-28 00:25] LABS: HYALINE CAST 0-2; MUCOUS 1+; RBC 0-2 rbc/hpf (0-2); WBC 0-2 wbc/hpf (0-5)
== END 2023-09-28 00:48 | disposition home or self-care (01) ==
LOC: ED 23:13
PROVIDERS: Internal Medicine
DX: N93.9 Abnormal uterine and vaginal bleeding, unspecified (principal); F41.9 Anxiety disorder, unspecified; J45.909 Unspecified asthma, uncomplicated; G43.909 Migraine, unspecified, not intractable, without status migrainosus; F13.10 Sedative, hypnotic or anxiolytic abuse, uncomplicated; F14.90 Cocaine use, unspecified, uncomplicated; F12.10 Cannabis abuse, uncomplicated; F17.210 Nicotine dependence, cigarettes, uncomplicated; Z91.030 Bee allergy status; Z88.5 Allergy status to narcotic agent; Z88.0 Allergy status to penicillin; Z88.6 Allergy status to analgesic agent; Z88.8 Allergy status to other drugs, medicaments and biological substances; Z90.49 Acquired absence of other specified parts of digestive tract; Z98.51 Tubal ligation status; Z98.890 Other specified postprocedural states

== ENCOUNTER 2023-11-17 01:19 | Emergency (ER) | payer OTHER ==
[2023-11-17 02:01] VITALS: BP 104/51
[2023-11-17 02:23] LABS: BASO # 0.1 10*3/uL (0.0-0.1); EOS # 0.6 10*3/uL (0.0-0.4); EOS % 7.8 % (1.0-4.0); HEMATOCRIT 42.1 % (37.0-47.0); LYMPH # 3.6 10*3/uL (1.3-4.4); LYMPH % 43.5 % (27.0-41.0); MEAN CELL VOLUME 90.9 fl (81.0-99.0); MEAN CORPUSCULAR HGB 29.6 pg (27.0-31.0); MEAN CORPUSCULAR HGB CONC 32.5 g/dl (33.0-37.0); MEAN PLATELET VOLUME 9.1 fl (9.6-12.3); MONO # 0.8 10*3/uL (0.1-1.0); MONO % 9.5 % (3.0-9.0); NEUT # 3.1 10*3/uL (2.3-7.9); NEUT % 38.1 % (47.0-73.0); PLATELET COUNT AUTOMATED 281 10*3/uL (130-400); RED BLOOD COUNT 4.63 10*6/uL (4.10-5.10); RED CELL DISTRI WIDTH 12.8 % (0-14.5); WHITE BLOOD COUNT 8.2 10*3/uL (4.8-10.8)
[2023-11-17 02:40] LABS: BUN 9 mg/dl (9-23); CHLORIDE 110 mmol/L (98-107); LIPASE 39 U/L (12-53); POTASSIUM 4.1 mmol/L (3.4-5.1)
[2023-11-17 02:58] LABS: BILIRUBIN Negative (Negative); BLOOD Negative (Negative); CLARITY Clear (Clear); COLOR Yellow (Yellow); GLUCOSE Negative (Negative); KETONE Negative (Negative); LEUKO ESTERASE Negative (Negative); NITRITE Negative (Negative); UROBILINOGEN 0.2 E.U./dl (0.0-1.0)
[2023-11-17 03:05] LABS: URINE AMPHETAMINES Positive (1000ng/ml); URINE BARBITURATES Negative (200ng/ml); URINE BENZODIAZEPINES Positive (200ng/ml); URINE CANNABINOIDS (THC) Positive (50ng/ml); URINE COCAINE Negative (300ng/ml); URINE METHADONE Negative (300ng/ml); URINE OPIATES Negative (300ng/ml); URINE PHENCYCLIDINE Negative (25ng/ml)
== END 2023-11-17 04:24 | disposition home or self-care (01) ==
LOC: ED 01:19
PROVIDERS: Emergency Medicine
DX: N94.6 Dysmenorrhea, unspecified (principal); F41.9 Anxiety disorder, unspecified; F32.A Depression, unspecified; G43.909 Migraine, unspecified, not intractable, without status migrainosus; J45.909 Unspecified asthma, uncomplicated; F12.10 Cannabis abuse, uncomplicated; F14.10 Cocaine abuse, uncomplicated; F11.10 Opioid abuse, uncomplicated; F17.210 Nicotine dependence, cigarettes, uncomplicated; F13.10 Sedative, hypnotic or anxiolytic abuse, uncomplicated; Z88.5 Allergy status to narcotic agent; Z91.030 Bee allergy status; Z88.0 Allergy status to penicillin; Z88.6 Allergy status to analgesic agent; Z88.8 Allergy status to other drugs, medicaments and biological substances; Z90.49 Acquired absence of other specified parts of digestive tract; Z98.51 Tubal ligation status; Z98.890 Other specified postprocedural states; Z79.899 Other long term (current) drug therapy

== ENCOUNTER → 2024-03-02 | Outpatient (CLI) | payer OTHER ==
[2024-03-02 13:49] LABS: BASO # 0.1 10*3/uL (0.0-0.1); BASO % 0.8 % (0.0-1.0); EOS # 0.2 10*3/uL (0.0-0.4); EOS % 3.1 % (1.0-4.0); HEMATOCRIT 44.1 % (37.0-47.0); MEAN CELL VOLUME 89.8 fl (81.0-99.0); MEAN CORPUSCULAR HGB 29.5 pg (27.0-31.0); MEAN CORPUSCULAR HGB CONC 32.9 g/dl (33.0-37.0); MEAN PLATELET VOLUME 9.1 fl (9.6-12.3); MONO # 0.5 10*3/uL (0.1-1.0); MONO % 6.5 % (3.0-9.0); NEUT # 4.6 10*3/uL (2.3-7.9); NEUT % 60.3 % (47.0-73.0); PLATELET COUNT AUTOMATED 285 10*3/uL (130-400); RED BLOOD COUNT 4.91 10*6/uL (4.10-5.10); RED CELL DISTRI WIDTH 13.1 % (0-14.5); WHITE BLOOD COUNT 7.7 10*3/uL (4.8-10.8)
[2024-03-02 15:10] LABS: ALKALINE PHOSPHATASE 62 U/L (46-116); BUN 9 mg/dl (9-23); CHLORIDE 109 mmol/L (98-107); CHOLESTEROL 172 mg/dL (<200); LDL CHOLESTEROL 94 mg/dL (9-159); POTASSIUM 3.4 mmol/L (3.4-5.1); SGPT/ALT 9 U/L (5-49); TOTAL PROTEIN 7.4 gm/dL (6.0-8.0); TRIGLYCERIDES 96 mg/dl (<150)
== END | disposition home or self-care (01) ==
LOC: MAMMO 02-24 13:00 → US 02-24 13:30 → MAMMO 13:30 → LAB 13:31
PROVIDERS: ATTEND Nurse Practitioner Women's Health
DX: Z13.29 Encounter for screening for other suspected endocrine disorder (principal); Z13.220 Encounter for screening for lipoid disorders; K21.9 Gastro-esophageal reflux disease without esophagitis; N93.9 Abnormal uterine and vaginal bleeding, unspecified; N94.6 Dysmenorrhea, unspecified; R92.30 Dense breasts, unspecified; N63.10 Unspecified lump in the right breast, unspecified quadrant; R92.8 Other abnormal and inconclusive findings on diagnostic imaging of breast